=== PATIENT | female | born 2000 | race Caucasian/White ===

== ENCOUNTER 2023-08-11 09:43 | Outpatient (AMB) | payer OTHER, SELFPAY ==
--- NOTE | 2023-08-11 09:49 | AM.OFFWIN_ITS ---
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 She states that she has been trying to drink an excessive amount of water to clear the infection without antibiotics but symptoms are worsening and now having back discomfort. She also reports a few weeks of smelly vaginal discharge. She denies , denies likelihood of STDs and reports that she thought she had a yeast infection recently and completed an over the counter regimen but the odor and discharge are still present. No abdominal pain, pelvic pain, vaginal bleeding, nausea or vomiting or diarrhea, fever, weakness, dizziness, myalgias or malaise, or other significant associated symptoms. [facility] Social History Patient Tobacco Use Status: Never used Tobacco Review of Systems Const All systems reviewed & are unremarkable except as noted in HPI and below Physical Exam Vital Signs: Last Vital Signs Temp 98.3 F 08/11/23 12:26 Pulse 54 08/11/23 12:26 BP 114/60 08/11/23 12:26 Pulse Ox 98 08/11/23 12:26 Oxygen Delivery Method Room Air 08/11/23 12:26 Const General: cooperative, healthy appearing, no acute distress, alert, awake, Physically active and well groomed; No anxious, diaphoretic, ill appearing, intoxicated appearing, poor hygiene or tired appearing Nutritional Appearance: average body habitus Limitations: no limitations Resp Effort & Inspection: normal respiratory effort Cardio Rate: regular rate GI Palpation (GI): Soft to palpation, not firm, nontender, no guarding, not rigid, No hepatosplenomegaly present and no masses General: Yes no CVA tenderness Back/Spine/Pelvis Back: no CVA tenderness Skin Other: Good color, warm and dry Psych Appearance: grossly normal Mental Status: mental status grossly normal Speech and movement: Normal speech and movement present Affect: normal affect Attitude: cooperative Thought process: Normal thought process present Insight: Good insight present (Psych) Judgement: Good judgement present (Psych) Results AMB Urinalysis, Automated UA Leukoctes 70 Mely/uL Last Edit by Samaria Hanna [facility] on 08/11/23 09:5 0 UA Nitrite Positive Last Edit by Samaria Hanna [facility] on 08/11/23 09:50 UA Urobilinogen 0.2 mg/dL Last Edit by Samaria Hanna [facility] on 08/11/23 09:50 UA Protein 30 mg/dL Last Edit by Samaria Hanna [facility] on 08/11/23 09:50 UA pH 6.0 Last Edit by Samaria Hanna [facility] on 08/11/23 09:50 UA Blood 25 Dane/uL Last Edit by Samaria Hanna [facility] on 08/11/23 09:50 UA Specific [place] 1.015 Last Edit by Samaria Hanna [facility] on 08/11/23 09:50 UA Ketone Negative Last Edit by Samaria Hanna [facility] on 08/11/23 09:50 UA Bilirubin 0 mg/dL Last Edit by Samaria Hanna [facility] on 08/11/23 09:50 UA Glucose 0 mg/dL Last Edit by Samaria Hanna [facility] on 08/11/23 09:50 AMB Test Urine AMB Test Urine Negative Last Edit by Samaria Hanna [facility] on 08/11/23 13:10 Results Reviewed Results Reviewed: Laboratory Last Values Urine pH (Auto) 6.0 08/11/23 09:49 Specific [place] (Auto) 1.015 08/11/23 09:49 Urine Protein (Auto) 30 mg/dL 08/11/23 09:49 Glucose (UA)(Auto) 0 mg/dL 08/11/23 09:49 Urine Ketones (Auto) Negative 01/13/24 09:49 Urine Blood (Auto) 25 Dane/uL 08/11/23 09:49 Urine Nitrite (Auto) Positive 08/11/23 09:49 Urine Bilirubin (Auto) 0 mg/dL 08/11/23 09:49 Urine Urobilinogen (Auto) 0.2 mg/dL 08/11/23 09:49 Leukocyte Esterase (Auto) 70 Mely/uL 08/11/23 09:49 [facility] Clinic Negative 08/11/23 13:09 test normal Assessment & Plan Assessment & Plan (1) UTI (urinary tract infection): Code(s): N39.0 - Urinary tract infection, site not specified Qualifiers: Urinary tract infection type: acute pyelonephritis Qualified Code(s): N10 - Acute pyelonephritis Plan: Patient has UA consistent with UTI, and due to mid back pain and chills and a delayed medical evaluation, it is possible that this is becoming an upper UTI. She is stable at this point however, and is competent for outpatient management initially. I started her on cipro to cover possible upper tract involvement, and fluconazole was prescribed in the event that the cipro worsens or causes another vaginitis. Her test was negative and she denies high risk sexual activity and declines full STD testing today. However she was advised to do bacterial vaginosis panel today to rule out BV, trichomonas or yeast, as she reports discharge with foul odor after she recently completed an over he counter medication for a possible vaginal yeast infection. 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 Orders: Orders AMB HCG Urine Test 08/11/23 R10.9 - Unspecified abdominal pain AMB Urinalysis Automated 08/11/23 Z13.9 - Encounter for screening, unspecified Bacterial Vaginosis Panel 08/11/23 N89.8 - Other specified noninflammatory disorders of vagina Medications: New ciprofloxacin HCl 500 mg (2 x 250 mg) PO BID 20 tabs 0RF 5 days fluconazole may repeat second dose 72 hrs after first dose if symptoms persist 150 mg PO Q3D 2 tabs 0RF 2 doses Coding Level of Care Code New Pt Level 4 (36790) Diagnoses Acute pyelonephritis N10 Urinary tract infection type: acute pyelonephritis
[2023-08-11 12:26] VITALS: BP 114/60; PULSE 54; TEMP 36.8; O2SAT 98
== END 2023-08-11 13:20 | disposition home or self-care (01) ==
PROVIDERS: Visit Provider Physician Assistant Medical
DX: N10 Acute pyelonephritis (principal); Z32.02 Encounter for pregnancy test, result negative; R30.9 Painful micturition, unspecified
CPT/HCPCS: 81003; 81025; 99051; 99204

== ENCOUNTER 2023-08-11 14:18 | Outpatient (REF) | payer OTHER, SELFPAY ==
[2023-08-13 11:58] LABS: BV Int Neg Control Negative (Negative); BV Int Pos Control Positive (Positive)
== END 2023-08-11 14:19 | disposition home or self-care (01) ==
LOC: HO.LNP 14:18
PROVIDERS: Visit Provider Physician Assistant Medical
DX: Z11.3 Encounter for screening for infections with a predominantly sexual mode of transmission (principal); N89.8 Other specified noninflammatory disorders of vagina; R10.9 Unspecified abdominal pain
CPT/HCPCS: 87480; 87510; 87660

== ENCOUNTER 2023-09-12 09:43 | Outpatient (AMB) | payer OTHER, SELFPAY ==
--- NOTE | 2023-09-12 10:48 | AM.OFFWIN_ITS ---
Intake Vital Signs 3 09/12/23 10:50 Height 5 ft Weight 112 lb 4 oz BMI 21.9 BP 126/72 Blood Pressure Location Rt brachial Position Sitting Pulse 95 Pulse Source Pulse Oximeter Pulse Oximetry (%) 98 Oxygen Delivery Method Room Air Intake Visit Reasons: EST/kidney pain (lobby) Patient Tobacco Use Status: Never used Tobacco Allergies No Known Allergies Allergy (Verified 09/12/23 10:50) Medication List - Last Reconciled 09/12/23 by Lenka Lobo MD No Known Home Meds HPI EST/kidney pain (lobby) 2 HPI0 Details 23-year-old female who regularly do roll erblading, went rule out bleeding yesterday and started having back in Pain is located mid back both sides Before she went for [place] bleeding she was having frequency and dysuria for the past 2 days After the role of bleeding patient's back pain got worse, however today it is a little bit better She is concerned about bladder infection Urinalysis shows small amount of leuk esterase, there is no blood I am treating her with Macrobid 100 mg b.i.d. for 5 days Patient was instructed to push fluids We will send urine for culture as well I have offered muscle relaxer for her back which patient feels she does not need PFSH Social History Patient Tobacco Use Status: Never used Tobacco Review of Systems Const All systems reviewed & are unremarkable except as noted in HPI and below Physical Exam Vital Signs: Last Vital Signs Pulse 95 09/12/23 10:50 BP 126/72 09/12/23 10:50 Pulse Ox 98 09/12/23 10:50 Oxygen Delivery Method Room Air 09/12/23 10:50 BMI result Body Mass Index 21.9 Const General: no acute distress Orientation/consciousness: patient oriented x3 Eyes General: appearance normal, both eyes and all related structures Resp Effort & Inspection: normal respiratory effort and able to speak in complete sentences Auscultation: clear to auscultation bilaterally Back/Spine/Pelvis Back/spine/pelvis image: 2 1. Site of pain, no pain with percussion Neuro General: patient oriented x3 Psych Mental Status: mental status grossly normal Results AMB Urinalysis, Automated 2 UA Leukoctes 15 Mely/uL Last Edit by Janessa Sol CMA on 09/12/23 11:05 UA Nitrite Negative Last Edit by Janessa Sol, [employer] on 09/12/23 11:05 UA Urobilinogen 0.2 mg/dL Last Edit by Janessa Sol, [employer] on 09/12/23 11:05 UA Protein 0 mg/dL Last Edit by Janessa Sol, [employer] on 09/12/23 11:05 UA pH 6.0 Last Edit by Janessa Sol, [employer] on 09/12/23 11:05 UA Blood 0 Dane/uL Last Edit by Janessa Sol, [employer] on 09/12/23 11:05 UA Specific [place] 1.010 Last Edit by Janessa Sol, [employer] on 09/12/23 11:0 5 UA Ketone Negative Last Edit by Janessa Sol, MILIND on 09/12/23 11:05 UA Bilirubin 0 mg/dL Last Edit by Janessa Sol, [employer] on 09/12/23 11:05 UA Glucose 0 mg/dL Last Edit by Janessa Sol, [employer] on 09/12/23 11:05 Assessment & Plan Assessment & Plan (1) Acute cystitis: Code(s): N30.00 - Acute cystitis without hematuria Qualifiers: Hematuria presence: without hematuria Qualified Code(s): N30.00 - Acute cystitis without hematuria Plan 23-year-old female who regularly do rollerblading, went rule out bleeding yesterday and started having back in Pain is located mid back both sides Before she went for [place] bleeding she was having frequency and dysuria for the past 2 days After the role of bleeding patient's back pain got worse, however today it is a little bit better She is concerned about bladder infection Urinalysis shows small amount of leuk esterase, there is no blood I am treating her with Macrobid 100 mg b.i.d. for 5 days Patient was instructed to push fluids We will send urine for culture as well I have offered muscle relaxer for her back which patient feels she does not need Orders: Orders 2 Urine Culture Today N30.00 - Acute cystitis without hematuria Medications: New 2 nitrofurantoin monohyd/m-cryst 100 mg (Macrobid) must administer with a meal/food 100 mg PO Q12H 10 caps 0RF 5 days Coding Level of Care Code Est Pt Level 3 (38914) Diagnoses Acute cystitis without hematuria N30.00 Hematuria presence: without hematuria
[2023-09-12 10:50] VITALS: BP 126/72; PULSE 95; O2SAT 98; BMI 21.9
== END 2023-09-12 12:53 | disposition home or self-care (01) ==
PROVIDERS: Visit Provider Internal Medicine
DX: N30.00 Acute cystitis without hematuria (principal)
CPT/HCPCS: 81003; 99213

== ENCOUNTER 2023-09-12 13:13 | Outpatient (REF) | payer OTHER, SELFPAY | END 2023-09-12 13:14 | disposition home or self-care (01) | LOC: HO.LNP 13:13 | PROVIDERS: Visit Provider Internal Medicine | DX: N30.00 Acute cystitis without hematuria (principal) | CPT/HCPCS: 87086; 87088; 87186 ==